=== PATIENT | male | born 1940 | race Caucasian/White ===

== ENCOUNTER 2024-01-24 14:07 | Inpatient (IN) | payer MEDICARE, OTHER ==
[~2024-01-24] VITALS: Ht 172.7 cm; Wt 79.8 kg
[2024-01-24 14:49] LABS: BASOPHILS % (AUTO) 0.3 % (0.0-2.0); EOSINOPHILS # (AUTO) 0.1 K/uL (0.0-0.7); EOSINOPHILS % (AUTO) 0.8 % (0.0-6.0); HEMATOCRIT 35 % (39-51); HEMOGLOBIN 11.8 g/dL (13.5-17.5); LYMPHOCYTES # (AUTO) 2.2 K/uL (0.8-4.8); LYMPHOCYTES % (AUTO) 21.5 % (20.0-44.0); MEAN CORPUSCULAR HEMOGLOBIN 30 PG (26.0-33.0); MEAN CORPUSCULAR HGB CONC 34 g/dl (31.0-36.0); MEAN CORPUSCULAR VOLUME 88 fL (80-96); MONOCYTES # (AUTO) 0.5 K/uL (0.1-1.30); NEUTROPHILS # (AUTO) 7.6 K/uL (1.8-8.9); NEUTROPHILS % (AUTO) 72.4 % (43.0-81.0); PLATELET COUNT (AUTO) 226 K/uL (150-450); RED BLOOD CELL COUNT(AUTO) 3.95 MIL/uL (4.5-6.0); RED CELL DISTRIBUTION WIDTH 13.4 % (11.5-15.0); WHITE BLOOD COUNT (AUTO) 10.4 K/uL (4.3-11.0)
[2024-01-24] MEDS ORDERED: QUET25TA PO (15:09)
[2024-01-24] MEDS ORDERED: AMLO-212 PO (15:09)
[2024-01-24] MEDS ORDERED: HYDR-4076 PO (15:09)
[2024-01-24] MEDS ORDERED: NIAC-49 PO (15:09)
[2024-01-24] MEDS ORDERED: ONDA-97 PO (15:09)
[2024-01-24] MEDS ORDERED: TRAM50TA2 PO (15:09)
[2024-01-24] MEDS ORDERED: POLY17PO4 PO (15:09)
[2024-01-24] MEDS ORDERED: OMEG1CAP76 PO (15:09)
[2024-01-24] MEDS ORDERED: MULT-213 PO (15:09)
[2024-01-24] MEDS ORDERED: PANT40TA49 PO (15:09)
[2024-01-24] MEDS ORDERED: ACET325T53 PO (15:09)
[2024-01-24] MEDS ORDERED: BISA10SU11 RC (15:09)
[2024-01-24] MEDS ORDERED: ALLO100T PO (15:09)
[2024-01-24] MEDS ORDERED: DEXT1CAP3 PO (15:09)
[2024-01-24] MEDS ORDERED: LACT10SO3 PO (15:09)
[2024-01-24] MEDS ORDERED: MELA3TAB41 PO (15:09)
[2024-01-24] MEDS ORDERED: TAMS-12 PO (15:09)
[2024-01-24] MEDS ORDERED: FINA5TAB11 PO (15:09)
[2024-01-24] MEDS ORDERED: MAG30ORA14 PO (15:09)
[2024-01-24] MEDS ORDERED: METH500T6 PO (15:09)
[2024-01-24] MEDS ORDERED: LOSA100T31 PO (15:09)
[2024-01-24] MEDS ORDERED: DOCU100C36 PO (15:09)
[2024-01-24] MEDS ORDERED: TERA1CAP11 PO (15:09)
[2024-01-24 15:11] LABS: LACTIC ACID 2.1 mmol/L (0.4-2.0)
[2024-01-24 15:28] LABS: ALANINE AMINOTRANSFERASE 23 U/L (12-78); ALBUMIN 3.3 g/dL (3.4-5.0); ALKALINE PHOSPHATASE 92 U/L (46-116); ASPARTATE AMINOTRANSFERASE 10 U/L (15-37); BILIRUBIN,DIRECT 0.1 mg/dL (0.0-0.2); BILIRUBIN,TOTAL 0.4 mg/dL (0.2-1.0); CALCIUM, SERUM 8.7 mg/dL (8.5-10.1); CARBON DIOXIDE 28 mmol/L (21-32); CHLORIDE 104 mmol/L (98-107); CREATININE 0.8 mg/dL (0.6-1.3); GLUCOSE 139 mg/dL (74-106); LIPASE 24 U/L (16-77); POTASSIUM 3.9 mmol/L (3.5-5.1); SODIUM SERUM 142 mmol/L (136-145); TOTAL PROTEIN, SERUM 7.2 g/dL (6.4-8.2); UREA NITROGEN, BLOOD 21 mg/dL (7-18)
[2024-01-24 17:16] LABS: APPEARANCE,URINE CLEAR (CLEAR); BILIRUBIN,URINE NEGATIVE (NEGATIVE); BLOOD, URINE NEGATIVE Ery/uL (NEGATIVE); COLOR,URINE YELLOW (YELLOW); KETONES,URINE NEGATIVE (NEGATIVE); LEUKOCYTE ESTERASE ,URINE NEGATIVE (NEGATIVE); NITRITE, URINE NEGATIVE (NEGATIVE); PROTEIN,URINE NEGATIVE (NEGATIVE); UGLUCOSE NEGATIVE (NEGATIVE); UROBILINOGEN,URINE 0.2 EU/dL (0.2)
[2024-01-24] MEDS ORDERED: hydrALAZINE HCL IV 20 MG VIAL IV PRN (18:00)
[2024-01-24] MEDS ORDERED: ONDANSETRON HCL/PF 4 MG/2 ML VIAL IVP PRN (18:00)
[2024-01-24] MEDS ORDERED: MORPHINE SULFATE INJ 2 MG/ML DISP.SYRIN IV PRN (18:00)
[2024-01-24 20:00] VITALS: BP 151/75; TEMP 98.2; O2SAT 95
[2024-01-24] MEDS: HEPARIN SODIUM, PORCINE 5000 UNITS/1 ML VIAL SQ SCH (20:50)
[2024-01-24] MEDS: QUETIAPINE FUMARATE 25 MG TABLET PO SCH (22:10)
[2024-01-24] MEDS: TERAZOSIN HCL 1 MG CAPSULE PO SCH (22:11)
[2024-01-25 04:00] VITALS: BP 146/84; TEMP 98.1; O2SAT 97
[2024-01-25 06:18] LABS: BASOPHILS % (AUTO) 0.2 % (0.0-2.0); EOSINOPHILS # (AUTO) 0.2 K/uL (0.0-0.7); EOSINOPHILS % (AUTO) 2.9 % (0.0-6.0); HEMATOCRIT 34 % (39-51); HEMOGLOBIN 11.4 g/dL (13.5-17.5); LYMPHOCYTES # (AUTO) 2.3 K/uL (0.8-4.8); LYMPHOCYTES % (AUTO) 31.2 % (20.0-44.0); MEAN CORPUSCULAR HEMOGLOBIN 30 PG (26.0-33.0); MEAN CORPUSCULAR HGB CONC 34 g/dl (31.0-36.0); MEAN CORPUSCULAR VOLUME 89 fL (80-96); MONOCYTES # (AUTO) 0.5 K/uL (0.1-1.30); MONOCYTES % (AUTO) 6.5 % (2.0-12.0); NEUTROPHILS # (AUTO) 4.3 K/uL (1.8-8.9); NEUTROPHILS % (AUTO) 59.2 % (43.0-81.0); PLATELET COUNT (AUTO) 196 K/uL (150-450); RED BLOOD CELL COUNT(AUTO) 3.83 MIL/uL (4.5-6.0); RED CELL DISTRIBUTION WIDTH 14.1 % (11.5-15.0); WHITE BLOOD COUNT (AUTO) 7.3 K/uL (4.3-11.0)
[2024-01-25 06:34] LABS: ALANINE AMINOTRANSFERASE 21 U/L (12-78); ALKALINE PHOSPHATASE 83 U/L (46-116); ASPARTATE AMINOTRANSFERASE 6 U/L (15-37); BILIRUBIN,TOTAL 0.4 mg/dL (0.2-1.0); CALCIUM, SERUM 8.5 mg/dL (8.5-10.1); CARBON DIOXIDE 29 mmol/L (21-32); CHLORIDE 106 mmol/L (98-107); CREATININE 0.7 mg/dL (0.6-1.3); GLUCOSE 97 mg/dL (74-106); MAGNESIUM 2.1 mg/dL (1.8-2.4); PHOSPHORUS 3.9 mg/dL (2.5-4.9); POTASSIUM 3.7 mmol/L (3.5-5.1); SODIUM SERUM 142 mmol/L (136-145); TOTAL PROTEIN, SERUM 6.6 g/dL (6.4-8.2); UREA NITROGEN, BLOOD 19 mg/dL (7-18)
[2024-01-25] MEDS: PANTOPRAZOLE 40 MG TABLET.DR PO SCH (07:30)
[2024-01-25 08:00] VITALS: BP 194/75; TEMP 98.1; O2SAT 98
[2024-01-25] MEDS ORDERED: DOCUSATE SODIUM LIQ 100 MG/10 ML UDC PO SCH (09:00)
[2024-01-25] MEDS: LACTULOSE 10 G/15 ML UDC (PYXIS) PO SCH (09:56)
[2024-01-25] MEDS: FINASTERIDE (5 MG) 5 MG TABLET PO SCH (09:57)
[2024-01-25] MEDS: ALLOPURINOL 100 MG TABLET PO SCH (09:57)
[2024-01-25] MEDS: METHOCARBAMOL (500MG) 500 MG TABLET PO SCH (09:57)
[2024-01-25] MEDS: TAMSULOSIN 0.4 MG CAP.SR.24H PO SCH (09:57)
[2024-01-25] MEDS: DOCUSATE SODIUM 100 MG CAPSULE PO SCH (09:57)
[2024-01-25] MEDS: LOSARTAN POTASSIUM 50 MG TABLET PO SCH (09:57)
[2024-01-25] MEDS: AMLODIPINE BESYLATE 5 MG TABLET PO SCH (09:58)
[2024-01-25] MEDS: POLYETHYLENE GLYCOL 3350 17 GM POWD.PACK PO SCH (09:58)
[2024-01-25 16:00] VITALS: BP 151/85; TEMP 97.9; O2SAT 96
[2024-01-25] MEDS: BISACODYL SUPP (10 MG) 10 MG/SUPP.RECT SUPP.RECT RC ONE (19:01)
[2024-01-25 20:00] VITALS: BP 144/72; TEMP 97.9; O2SAT 96
[2024-01-25 21:01] VITALS: BP 144/72; TEMP 97.9; O2SAT 97
[2024-01-26 08:00] VITALS: BP 179/92; TEMP 97.5; O2SAT 97
[2024-01-26] MEDS: ACETAMINOPHEN 325 MG TABLET PO PRN (12:53)
[2024-01-26 16:00] VITALS: BP 124/78; TEMP 98.2; O2SAT 95
[2024-01-26 20:00] VITALS: BP 127/64; TEMP 98.8; O2SAT 96
[2024-01-26] MEDS: MIRTAZAPINE 15 MG TABLET PO SCH (22:15)
[2024-01-27 07:30] VITALS: BP_SYST 138; BP_SYST 178; BP_DIAS 58; BP_DIAS 72; TEMP 97.7; TEMP 97.9; O2SAT 98; O2SAT 99
[2024-01-27] MEDS: PANTOPRAZOLE 40 MG TABLET.DR PO SCH (07:41)
[2024-01-27 08:17] VITALS: BP 122/58
[2024-01-27] MEDS ORDERED: MIRT-121 PO (10:10)
[2024-01-27] MEDS ORDERED: TERA1CAP11 PO (10:10)
[2024-01-27] MEDS ORDERED: PANT40TA49 PO (10:10)
[2024-01-27] MEDS ORDERED: POLY17PO29 PO (10:10)
== END 2024-01-27 15:00 | DRG 640 ==
LOC: ER 14:10 → MED 17:16
PROVIDERS: ADMIT Internal Medicine; ATTEND Nurse Practitioner Acute Care
DX: E86.0 Dehydration (principal); G93.41 Metabolic encephalopathy; I69.351 Hemiplegia and hemiparesis following cerebral infarction affecting right dominant side; E44.1 Mild protein-calorie malnutrition; R53.1 Weakness; E87.20 Acidosis, unspecified; D64.9 Anemia, unspecified; E88.09 Other disorders of plasma-protein metabolism, not elsewhere classified; K59.00 Constipation, unspecified; M10.9 Gout, unspecified; I10 Essential (primary) hypertension; N40.0 Benign prostatic hyperplasia without lower urinary tract symptoms; Z68.26 Body mass index [BMI] 26.0-26.9, adult; Z20.822 Contact with and (suspected) exposure to COVID-19
CPT/HCPCS: 36415; 71045-TC; 80048-TC; 80053-TC; 80076-TC; 83605-TC; 83690-TC; 83735-TC; 84100-TC; 84484-TC; 85025-TC; 87040-TC; 87086-TC; G0378; J1644

== ENCOUNTER 2024-07-27 12:09 | Inpatient (IN) | payer MEDICARE, OTHER ==
[~2024-07-27] VITALS: Ht 170.2 cm; Wt 85.3 kg
[~2024-07-27 12:09] MED LIST: ACET325T53 PO; ALLO100T PO; AMLO-212 PO; BISA10SU11 RC; DEXT1CAP3 PO; DOCU100C36 PO; FINA5TAB11 PO; HYDR-4076 PO; LACT10SO3 PO; LOSA100T31 PO; MAG30ORA14 PO; MELA3TAB41 PO; METH500T6 PO; MIRT-121 PO; MULT-213 PO; NIAC-49 PO; OMEG1CAP76 PO; PANT40TA49 PO; POLY17PO29 PO; POLY17PO4 PO; QUET25TA PO; TAMS-12 PO; TERA1CAP11 PO; TRAM50TA2 PO
[2024-07-27] MEDS ORDERED: OLANZAPINE 10 MG VIAL IM ONE (12:31)
[2024-07-27 12:37] LABS: BASOPHILS % (AUTO) 0.3 % (0.0-2.0); EOSINOPHILS # (AUTO) 0.2 K/uL (0.0-0.7); HEMATOCRIT 34 % (39-51); HEMOGLOBIN 11.9 g/dL (13.5-17.5); LYMPHOCYTES # (AUTO) 2.6 K/uL (0.8-4.8); LYMPHOCYTES % (AUTO) 29.4 % (20.0-44.0); MEAN CORPUSCULAR HEMOGLOBIN 30 PG (26.0-33.0); MEAN CORPUSCULAR HGB CONC 35 g/dl (31.0-36.0); MEAN CORPUSCULAR VOLUME 87 fL (80-96); MONOCYTES # (AUTO) 0.7 K/uL (0.1-1.30); MONOCYTES % (AUTO) 7.6 % (2.0-12.0); NEUTROPHILS # (AUTO) 5.4 K/uL (1.8-8.9); NEUTROPHILS % (AUTO) 60.7 % (43.0-81.0); PLATELET COUNT (AUTO) 208 K/uL (150-450); RED BLOOD CELL COUNT(AUTO) 3.95 MIL/uL (4.5-6.0); RED CELL DISTRIBUTION WIDTH 14.6 % (11.5-15.0); WHITE BLOOD COUNT (AUTO) 8.9 K/uL (4.3-11.0)
[2024-07-27 12:44] LABS: CALCIUM, SERUM 8.6 mg/dL (8.5-10.1); CARBON DIOXIDE 28 mmol/L (21-32); CHLORIDE 110 mmol/L (98-107); CREATININE 0.9 mg/dL (0.6-1.3); GLUCOSE 119 mg/dL (74-106); POTASSIUM 3.8 mmol/L (3.5-5.1); SODIUM SERUM 144 mmol/L (136-145); UREA NITROGEN, BLOOD 20 mg/dL (7-18)
[2024-07-27 12:50] LABS: ACETAMINOPHEN 0 ug/ml (10-30); ALANINE AMINOTRANSFERASE 22 U/L (12-78); ALBUMIN 2.9 g/dL (3.4-5.0); ALKALINE PHOSPHATASE 83 U/L (46-116); ASPARTATE AMINOTRANSFERASE 13 U/L (15-37); BILIRUBIN,TOTAL 0.3 mg/dL (0.2-1.0); TOTAL PROTEIN, SERUM 6.8 g/dL (6.4-8.2)
[2024-07-27] MEDS: OLANZAPINE 10 MG VIAL IM ONE (12:55)
[2024-07-27 12:59] LABS: ALCOHOL, BLOOD < 10 mg/dL (0-10); BILIRUBIN,DIRECT 0.1 mg/dL (0.0-0.2); SALICYLATE 0.5 mg/dL (2.8-20.0)
[2024-07-27 13:21] LABS: APPEARANCE,URINE CLEAR (CLEAR); BILIRUBIN,URINE NEGATIVE (NEGATIVE); BLOOD, URINE NEGATIVE Ery/uL (NEGATIVE); COLOR,URINE YELLOW (YELLOW); KETONES,URINE NEGATIVE (NEGATIVE); LEUKOCYTE ESTERASE ,URINE NEGATIVE (NEGATIVE); NITRITE, URINE NEGATIVE (NEGATIVE); PROTEIN,URINE NEGATIVE (NEGATIVE); UGLUCOSE NEGATIVE (NEGATIVE); UROBILINOGEN,URINE 0.2 EU/dL (0.2)
[2024-07-27 13:35] LABS: AMPHETAMINE, URINE NEGATIVE (NEGATIVE); BARBITURATE, URINE NEGATIVE (NEGATIVE); BENZODIAZEPINE, URINE NEGATIVE (NEGATIVE); CANNABINOID, URINE NEGATIVE (NEGATIVE); COCCAINE, URINE NEGATIVE (NEGATIVE); OPIATE, URINE NEGATIVE (NEGATIVE); PHENCYCLIDINE SCREEN,URINE NEGATIVE (NEGATIVE)
[2024-07-27] MEDS ORDERED: POLY17PO4 PO (13:56)
[2024-07-27] MEDS ORDERED: MAG HYDROX/AL HYDROX/SIMETH 30 ML UDC PO PRN (15:30)
[2024-07-27] MEDS ORDERED: ZOLPIDEM TARTRATE 5 MG TABLET PO PRN (15:30)
[2024-07-27] MEDS ORDERED: ACETAMINOPHEN 325 MG TABLET PO PRN ×2 (15:30→17:30)
[2024-07-27] MEDS ORDERED: MAGNESIUM HYDROXIDE 30 ML UDC PO PRN (15:30)
[2024-07-27] MEDS: BLOOD SUGAR DIAGNOSTIC 1 EACH STRIP IN ONE (15:42)
[2024-07-27 16:00] VITALS: BP 129/72; TEMP 97.9; O2SAT 96
[2024-07-27 20:00] VITALS: BP 135/82; TEMP 98; O2SAT 96
[2024-07-27] MEDS ORDERED: Z GUARD REMEDY 4 OZ OINT TP PRN (21:00)
[2024-07-28 08:03] LABS: CHOLESTEROL 214 mg/dL (<200); HDL CHOLESTEROL 41 mg/dL (40-60); LDL 148 mg/dL (0-99); TRIGLYCERIDES 169 mg/dL (30-150)
[2024-07-28] MEDS: LACTULOSE 10 G/15 ML UDC (PYXIS) PO SCH (08:27)
[2024-07-28] MEDS: PANTOPRAZOLE 40 MG TABLET.DR PO SCH (08:27)
[2024-07-28] MEDS: TAMSULOSIN 0.4 MG CAP.SR.24H PO SCH (08:28)
[2024-07-28] MEDS: ALLOPURINOL 100 MG TABLET PO SCH (08:28)
[2024-07-28] MEDS: FINASTERIDE (5 MG) 5 MG TABLET PO SCH (08:28)
[2024-07-28] MEDS: METHOCARBAMOL (500MG) 500 MG TABLET PO SCH (08:28)
[2024-07-28] MEDS: AMLODIPINE BESYLATE 5 MG TABLET PO SCH (08:28)
[2024-07-28] MEDS: DOCUSATE SODIUM 100 MG CAPSULE PO SCH (08:28)
[2024-07-28] MEDS: Z GUARD REMEDY 4 OZ OINT TP SCH (08:29)
[2024-07-28] MEDS: LOSARTAN POTASSIUM 50 MG TABLET PO SCH (08:29)
[2024-07-28 08:32] LABS: BILIRUBIN,TOTAL 0.3 mg/dL (0.2-1.0); CALCIUM, SERUM 8.9 mg/dL (8.5-10.1); CREATININE 0.6 mg/dL (0.6-1.3); POTASSIUM 3.7 mmol/L (3.5-5.1); TOTAL PROTEIN, SERUM 6.7 g/dL (6.4-8.2)
[2024-07-28 08:36] VITALS: BP 160/76; TEMP 97.6; O2SAT 98
[2024-07-28] MEDS: ESCITALOPRAM OXALATE (10 MG) 10 MG TABLET PO SCH (14:09)
[2024-07-28] MEDS: LORAZEPAM 0.5 MG TABLET PO PRN (14:09)
[2024-07-28] MEDS: QUETIAPINE FUMARATE 25 MG TABLET PO SCH ×2 (16:19→21:31)
[2024-07-28 17:24] LABS: CREATININE 0.6 mg/dL (0.6-1.3)
[2024-07-28 20:07] VITALS: BP 149/80; TEMP 97.9; O2SAT 96
[2024-07-29 20:40] VITALS: BP 158/68; TEMP 98; O2SAT 97
[2024-07-30 08:00] VITALS: BP 165/83; TEMP 98.2; O2SAT 96
[2024-07-30] MEDS: hydrALAZINE HCL 25 MG TABLET PO SCH (10:30)
[2024-07-30 16:00] VITALS: BP 142/63; TEMP 97.9; O2SAT 95
[2024-07-30 21:38] VITALS: BP 135/67; TEMP 97.8; O2SAT 96
[2024-07-31 05:12] VITALS: BP 150/64; TEMP 98.2; O2SAT 96
[2024-07-31 08:00] VITALS: BP 166/59; TEMP 98.7; O2SAT 97
[2024-07-31] MEDS: QUETIAPINE FUMARATE 25 MG TABLET PO SCH (08:41)
[2024-07-31] MEDS: ESCITALOPRAM OXALATE (10 MG) 10 MG TABLET PO SCH (08:44)
[2024-07-31 15:44] VITALS: BP 119/63; TEMP 97.7; O2SAT 97
[2024-07-31 20:22] VITALS: BP 118/68; TEMP 97.8; O2SAT 97
[2024-08-01 08:00] VITALS: BP 160/71; TEMP 97.7; O2SAT 97
[2024-08-01 15:53] VITALS: BP 142/66; TEMP 97.9; O2SAT 94
[2024-08-01 19:48] VITALS: BP 126/94; TEMP 97.9; O2SAT 96
[2024-08-02 08:00] VITALS: BP 158/70; TEMP 98.8; O2SAT 98
[2024-08-02 09:29] VITALS: BP 158/70
== END 2024-08-02 12:30 | DRG 885 ==
LOC: ER 12:56 → GPS 14:53
PROVIDERS: ADMIT Psychiatry & Neurology Psychiatry; ATTEND Internal Medicine
DX: F29 Unspecified psychosis not due to a substance or known physiological condition (principal); G93.41 Metabolic encephalopathy; I69.351 Hemiplegia and hemiparesis following cerebral infarction affecting right dominant side; F03.93 Unspecified dementia, unspecified severity, with mood disturbance; F03.92 Unspecified dementia, unspecified severity, with psychotic disturbance; I10 Essential (primary) hypertension; K21.9 Gastro-esophageal reflux disease without esophagitis; D64.9 Anemia, unspecified; N40.0 Benign prostatic hyperplasia without lower urinary tract symptoms; M10.9 Gout, unspecified; Z73.6 Limitation of activities due to disability; R53.1 Weakness; F39 Unspecified mood [affective] disorder; Z79.899 Other long term (current) drug therapy; Z20.822 Contact with and (suspected) exposure to COVID-19
CPT/HCPCS: 36415; 80048-TC; 80053-TC; 80061-TC; 80076-TC; 82565-TC; 82962-TC; 85025-TC; 87081-TC; 97110-TC; 97530-TC; G0480; J3490